=== PATIENT | female | born 1985 | race Asian ===

== ENCOUNTER 2021-05-21 23:14 | Inpatient (IN) ==
[2021-05-21] MEDS ORDERED: Lactated Ringers 1000 ml BAG 1,000 ML IV ONE (23:43)
[2021-05-21] MEDS ORDERED: Buffered Lidocaine 1% SYRIN 1 ml INTRADERM ONE (23:43)
[2021-05-21] MEDS ORDERED: Lactated Ringers 1000 ml BAG 1,000 ML IV SCH (23:45)
[2021-05-21] MEDS ORDERED: Oxytocin in LR 20 UNITS/1,000 ML BAG IVPB ONE (23:49)
[2021-05-22 00:01] LABS: Hematocrit 43 % (35-47); Hemoglobin 14.8 g/dL (12.0-16.0); Mean Corpuscular HGB Conc 34 g/dL (31-36); Mean Corpuscular Hemoglobin 31 pg (27-31); Mean Corpuscular Volume 90 fL (80-97); Mean Platelet Volume 9.6 fL (7.4-10.4); Platelet Count 205 10^3/uL (150-450); Red Blood Count 4.77 10^6 /uL (3.70-4.87); Red Cell Distribution Width 14 % (10-15); White Blood Count 9.4 10^3/uL (3.5-10.8)
[2021-05-22] MEDS ORDERED: Bupivacaine 0.25% SDV PF 10 ML VIAL INJ ONE (00:22)
[2021-05-22] MEDS ORDERED: OBEPIDURAL 0 ML EPIDURAL ONE (00:23)
[2021-05-22 01:35] LABS: Urine Appearance Clear; Urine Bilirubin Negative (Negative); Urine Blood Negative (Negative); Urine Color Yellow; Urine Glucose Negative (Negative); Urine Ketones Negative (Negative); Urine Nitrite Negative (Negative); Urine Protein Negative (Negative); Urine Specific Gravity 1.011 (1.002-1.030); Urine Urobilinogen Negative (Negative)
[2021-05-22] MEDS ORDERED: OBEPIDURAL 250 ML EPIDURAL ONE (02:49)
[2021-05-22] MEDS ORDERED: Sodium Citrate/Citric Acid LIQ 15 ML UDC PO PRN (03:10)
[2021-05-22] MEDS ORDERED: Lactated Ringers 1000 ml BAG 1,000 ML IV ONE (03:10)
[2021-05-22] MEDS ORDERED: Phenylephrine 40 mcg/mL 10mL (400mcg) SYRINGE IV PUSH PRN ×2 (03:10)
[2021-05-22] MEDS ORDERED: Lactated Ringers 1000 ml BAG 1,000 ML IV SCH (04:00)
[2021-05-22] MEDS ORDERED: OBEPIDURAL 250 ML EPIDURAL SCH (04:00)
[2021-05-22] MEDS ORDERED: Glycerin ADULT 2.4 gm SUPP PR PRN (07:29)
[2021-05-22] MEDS ORDERED: Lidocaine 1% VIAL 10 MG/ML VIAL ONE (07:36)
[2021-05-22] MEDS ORDERED: Oxytocin in LR 20 UNITS/1,000 ML BAG IVPB SCH (08:00)
[2021-05-22 09:45] LABS: Urine Benzodiazepine Screen None Detected (None Detect); Urine Cannabinoids Screen None Detected (None Detect); Urine Opiates Screen None Detected (None Detect)
[2021-05-22] MEDS: Witch Hazel PAD JAR TOPICAL PRN ×2 (09:54→20:50)
[2021-05-22] MEDS: Dibucaine 1% OINT 28.35 GM TUBE PR PRN ×2 (09:54→20:50)
[2021-05-23 07:35] LABS: ABS Eosinophils 0.1 10^3/ul (0-0.6); ABS Monocytes 0.7 10^3/ul (0-0.8); ABS Neutrophils 8.5 10^3/ul (1.5-7.7); Eosinophil % 0.9 %; Hematocrit 38 % (35-47); Hemoglobin 12.9 g/dL (12.0-16.0); Lymphocyte % 17.6 %; Mean Corpuscular HGB Conc 34 g/dL (31-36); Mean Corpuscular Hemoglobin 31 pg (27-31); Mean Corpuscular Volume 91 fL (80-97); Mean Platelet Volume 9.4 fL (7.4-10.4); Platelet Count 174 10^3/uL (150-450); Red Blood Count 4.15 10^6 /uL (3.70-4.87); Red Cell Distribution Width 14 % (10-15); White Blood Count 11.4 10^3/uL (3.5-10.8)
[2021-05-24 08:53] VITALS: BP 113/64
== END 2021-05-24 12:40 | disposition home or self-care (01) | DRG 560 ==
LOC: MCHOBOUT 23:14 → MCHOB 23:38
PROVIDERS: ADMIT Midwife; ATTEND Midwife